=== PATIENT | male | born 1990 | race African-American/Black ===

== ENCOUNTER 2021-02-20 16:05 | Emergency (ER) | payer MEDICAID ==
[~2021-02-20] VITALS: Ht 182.9 cm; Wt 78.7 kg
--- NOTE | 2021-02-20 16:28 | NUR ---
FIRST CONTACT WITH PATIENT: COUGH, NAUSEA, FATIGUE, DIZZY; UNVACCINATED. DR. IRENE TO BEDSIDE FOR EVALUATION. PT POSTIONED TO COMFORT AND ATTACHED TO MONITORS. NADN. BO.
[2021-02-20 16:47] LABS: BASOPHILS % (AUTO) 1 % (0-1); EOSINOPHILS % (AUTO) 2 % (1-7); LYMPHOCYTES % (AUTO) 25 % (22-44); MEAN CORPUSCULAR HEMOGLOBIN 31.1 pg (27.5-34.5); MEAN CORPUSCULAR HGB CONC 34.5 g/dL (33.2-36.2); MEAN PLATELET VOLUME 7.1 fL (7.4-10.4); MONOCYTES % (AUTO) 6 % (2-9); NEUTROPHILS % (AUTO) 66 % (42-75); PLATELET COUNT 454 x10^3/uL (130-400); RED BLOOD COUNT 4.29 x10^6/uL (4.38-5.82); RED CELL DISTRIBUTION WIDTH 14.6 % (9.4-14.8)
[2021-02-20 16:57] LABS: CHLORIDE 110 mmol/L (98-107)
[2021-02-20 17:04] LABS: ALANINE AMINOTRANSFERASE 22 U/L (12-78); ALBUMIN 3.6 g/dL (3.4-5.0); ALKALINE PHOSPHATASE 86 U/L (45-117); ANION GAP 4 mmol/L (5-15); BILIRUBIN,TOTAL 0.4 mg/dL (0.2-1.0); CALCIUM 8.5 mg/dL (8.5-10.1); CREATININE 0.98 mg/dL (0.7-1.3); TOTAL PROTEIN 7.4 g/dL (6.4-8.2)
[2021-02-20 17:51] VITALS: BP 155/108
--- NOTE | 2021-02-20 18:35 | NUR ---
Patient given discharge instructions and they have confirmed that they understand the instructions. Patient ambulatory with steady gait. NAD, all questions answered appropriately, denies additional needs at this time. No personal belongings left in room after discharge.
== END 2021-02-20 18:36 | disposition home or self-care (01) ==
LOC: ED 16:56
DX: B34.9 Viral infection, unspecified (principal); Z20.822 Contact with and (suspected) exposure to COVID-19; R07.9 Chest pain, unspecified; I10 Essential (primary) hypertension; R42 Dizziness and giddiness; R53.83 Other fatigue; R94.31 Abnormal electrocardiogram [ECG] [EKG]
CPT/HCPCS: 36415; 71045; 80053; 85025; 93005; 99285; U0003; U0005

== ENCOUNTER 2021-03-19 07:29 | Emergency (ER) | payer OTHER, MEDICAID ==
[~2021-03-19] VITALS: Ht 182.9 cm; Wt 75.7 kg
--- NOTE | 2021-03-19 07:50 | NUR ---
This pt is coming from home where he had a syncopal event this AM from standing. Pt reports he had a SCHOFIELD prior to the event and c/o pain posteriorly s/p syncopal. Pt presents A&O. Pt denies hx of syncope or sz. Pt reports hx of CP with diaphoresis in which medics were called, EKG was performed and pt was advised to go to the ER but refused. Pt also describes mutliple incidents while incarcerated in which he was examined by the [facility] and told "we're not really sure if you're having a stroke right now." Pt was recently diagnosed with HTN and given rx for HCTZ which he has not taken yet today.
--- NOTE | 2021-03-19 07:57 | NUR ---
Pt to imaging.
[2021-03-19] MEDS ORDERED: SODIUM CHLORIDE 0.9% 1,000ML IVBOLUS ONE (08:00)
[2021-03-19] MEDS ORDERED: SODIUM CHLORIDE FLUSH 10ML SYR IVF ONE (08:00)
[2021-03-19 08:21] LABS: BASOPHILS % (AUTO) 1 % (0-1); EOSINOPHILS % (AUTO) 2 % (1-7); LYMPHOCYTES % (AUTO) 31 % (22-44); MEAN CORPUSCULAR HEMOGLOBIN 30.2 pg (27.5-34.5); MEAN CORPUSCULAR HGB CONC 33.9 g/dL (33.2-36.2); MONOCYTES % (AUTO) 7 % (2-9); NEUTROPHILS % (AUTO) 60 % (42-75); PLATELET COUNT 455 x10^3/uL (130-400); RED BLOOD COUNT 4.56 x10^6/uL (4.38-5.82); RED CELL DISTRIBUTION WIDTH 14.7 % (9.4-14.8)
[2021-03-19 08:34] LABS: ALBUMIN 3.6 g/dL (3.4-5.0); ANION GAP 5 mmol/L (5-15); CHLORIDE 106 mmol/L (98-107)
--- NOTE | 2021-03-19 08:37 | NUR ---
Fluids still infusing will do orthostatics after they are done.
[2021-03-19 08:40] LABS: ALANINE AMINOTRANSFERASE 23 U/L (12-78); ALKALINE PHOSPHATASE 78 U/L (45-117); BILIRUBIN,TOTAL 0.7 mg/dL (0.2-1.0); CREATININE 1.11 mg/dL (0.7-1.3); TOTAL PROTEIN 7.9 g/dL (6.4-8.2); TROPONIN I < 0.015 ng/mL (0.000-0.045)
--- NOTE | 2021-03-19 09:02 | NUR ---
Pt denies dizziness with orthostatics, reports he feels "better."
[2021-03-19 09:55] VITALS: BP 142/93
== END 2021-03-19 09:57 | disposition home or self-care (01) ==
LOC: ED 07:39
DX: S09.90XA Unspecified injury of head, initial encounter (principal); R55 Syncope and collapse; R42 Dizziness and giddiness; F17.210 Nicotine dependence, cigarettes, uncomplicated; I10 Essential (primary) hypertension; X58.XXXA Exposure to other specified factors, initial encounter; Y93.89 Activity, other specified; Y92.009 Unspecified place in unspecified non-institutional (private) residence as the place of occurrence of the external cause; Y99.8 Other external cause status
CPT/HCPCS: 36415; 70450; 80053; 84484; 85025; 93005; 96360; 99285; 99406; J7030